=== PATIENT | female | born 1955 | race African-American/Black ===

== ENCOUNTER 2016-10-10 12:09 | Emergency (ER) | payer OTHER, MEDICAID ==
[~2016-10-10] VITALS: Ht 165.1 cm; Wt 64.0 kg
[~2016-10-10 12:09] MED LIST: METFORMIN; OMEPRAZOLE
[2016-10-10] MEDS ORDERED: KETOROLAC 60MG/2ML VIAL IM ONE (13:30)
[2016-10-10 16:35] VITALS: BP 138/60
== END 2016-10-10 17:05 | disposition home or self-care (01) ==
LOC: ER 12:31
DX: M25.562 Pain in left knee (principal); I10 Essential (primary) hypertension; M19.90 Unspecified osteoarthritis, unspecified site; W01.0XXA Fall on same level from slipping, tripping and stumbling without subsequent striking against object, initial encounter; Y93.89 Activity, other specified; Y92.89 Other specified places as the place of occurrence of the external cause; Y99.8 Other external cause status
CPT/HCPCS: 73562; 96372; 99284; J1885; L1830

== ENCOUNTER 2018-07-14 14:49 | Inpatient (IN) | payer MEDICARE, MEDICAID ==
[~2018-07-14] VITALS: Ht 167.6 cm; Wt 79.4 kg
[~2018-07-14 14:49] MED LIST changes: -METFORMIN; +METFORMIN PO; -OMEPRAZOLE; +OMEPRAZOLE PO
[2018-07-14 15:46] LABS: CHLORIDE 105 mEq/L (98-107); HEMATOCRIT. 25.8 % (36.0-48.0); HEMOGLOBIN. 7.7 g/dL (12.0-16.0); LYMPHOCYTES % 22.5 % (20.0-50.0); MEAN CORPUSCULAR HEMOGLOBIN 19.9 pg (28.0-32.0); MEAN CORPUSCULAR VOLUME 66.1 fL (81.0-99.0); MEAN PLATELET VOLUME 6.9 fl (7.4-10.4); MONOCYTES % 8.1 % (2.0-8.0); NEUTROPHILS % 67.4 % (40.0-76.0); PLATELET 434 x1000/uL (130-400); RED CELL DISTRIBUTION WIDTH 18.7 % (11.6-14.6)
[2018-07-14 15:50] LABS: ETHANOL BLOOD < 10 mg/dL
[2018-07-14 16:14] LABS: PLATELET ESTIMATE INCREASED
[2018-07-14] MEDS ORDERED: MORPHINE SULFATE 4 MG/ML CPJ (NOT FOR IM USE) IV STA (17:12)
[2018-07-14] MEDS ORDERED: ONDANSETRON HCL 4MG/2ML INJ IV STA (17:12)
[2018-07-14 18:25] LABS: *AMPHETAMINES SCREEN URINE NEGATIVE (NEGATIVE); *BARBITURATES SCREEN URINE NEGATIVE (NEGATIVE); *BENZODIAZEPINES SCREEN URINE NEGATIVE (NEGATIVE); *COCAINE SCREEN URINE PRESUMTIVE POSITIVE (NEGATIVE)
[2018-07-14] MEDS ORDERED: IOHEXOL-350 100 ML BOTTLE ONE (18:25)
[2018-07-14 18:26] LABS: CANNABINOID URINE SCREEN NEGATIVE (NEGATIVE); METHADONE URINE SCREEN NEGATIVE (NEGATIVE); OPIATES URINE SCREEN NEGATIVE (NEGATIVE); PHENCYCLIDINE URINE SCREEN NEGATIVE (NEGATIVE)
[2018-07-14 20:45] VITALS: BP 133/63
[2018-07-14 21:45] VITALS: BP 125/50
[2018-07-14 22:00] VITALS: BP 125/50
[2018-07-14] MEDS ORDERED: LISI-604 PO (22:14)
[2018-07-14] MEDS ORDERED: ASPI-1393 PO (22:15)
[2018-07-14] MEDS ORDERED: SIMV20TA6 PO (22:16)
[2018-07-14] MEDS ORDERED: HYDR-4001 PO (22:19)
[2018-07-14] MEDS ORDERED: S350 PO (22:20)
[2018-07-14] MEDS ORDERED: TRAZ-213 PO (22:25)
[2018-07-15] VITALS (8 sets, daily range): BP systolic 109–142; BP diastolic 54–79
[2018-07-15] MEDS ORDERED: MAGNESIUM/ALUMINUM HYDROXIDE/SIMETHICONE 30ML UDC PO PRN (00:30)
[2018-07-15] MEDS ORDERED: IPRATROPIUM/ALBUTEROL 0.5-3(2.5)MG/3ML NEB INH PRN (00:30)
[2018-07-15] MEDS ORDERED: DOCUSATE SODIUM 100MG CAPSULE PO PRN (00:30)
[2018-07-15] MEDS ORDERED: ACETAMINOPHEN 325MG TABLET PO PRN (00:30)
[2018-07-15] MEDS ORDERED: ONDANSETRON HCL 4MG/2ML INJ IV PRN (00:30)
[2018-07-15] MEDS ORDERED: CLONIDINE 0.1MG TABLET PO PRN (00:30)
[2018-07-15] MEDS: HYDROCODONE/ACETAMINOPHEN 5/325MG TABLET PO PRN ×3 (02:16→23:54)
[2018-07-15 07:16] LABS: CHLORIDE 106 mEq/L (98-107)
[2018-07-15 07:20] LABS: BASOPHILS % 0.6 % (0.0-2.0); EOSINOPHILS % 1.3 % (0.0-5.0); HEMATOCRIT. 27.3 % (36.0-48.0); HEMOGLOBIN. 8.4 g/dL (12.0-16.0); LYMPHOCYTES % 22.7 % (20.0-50.0); MEAN CORPUSCULAR HEMOGLOBIN 21.1 pg (28.0-32.0); MEAN CORPUSCULAR VOLUME 68.4 fL (81.0-99.0); MEAN PLATELET VOLUME 7.5 fl (7.4-10.4); MONOCYTES % 7.8 % (2.0-8.0); NEUTROPHILS % 67.6 % (40.0-76.0); PLATELET 387 x1000/uL (130-400); RED BLOOD CELL COUNT 3.99 mill/uL (4.2-5.4); RED CELL DISTRIBUTION WIDTH 20.5 % (11.6-14.6)
[2018-07-15 07:36] LABS: LDL CHOLESTEROL 83 mg/dL (5-100)
[2018-07-15 07:38] LABS: CREATINE KINASE 73 IU/L (26-192)
[2018-07-15 07:41] LABS: CREATINE KINASE MB FRACTION < 1.0 ng/mL (0.5-3.6); HDL CHOLESTEROL 51 mg/dL (40-59)
[2018-07-15] MEDS: ASPIRIN 81MG EC TABLET PO SCH (09:11)
[2018-07-15] MEDS: ENOXAPARIN 40MG/0.4ML SYR SUBCUT SCH (09:11)
[2018-07-15] MEDS ORDERED: DEXTROSE 50% WATER 50ML SYRINGE IV PRN (12:30)
[2018-07-15] MEDS: BLOOD SUGAR DIAGNOSTIC STRIP TEST SCH ×3 (12:37→20:34)
[2018-07-15] MEDS: INSULIN LISPRO 100 UNITS/ML SUBCUT SCH ×3 (12:54→20:34)
[2018-07-15 14:50] LABS: CLARITY URINE CLEAR (CLEAR); COLOR URINE YELLOW (YELLOW); KETONES URINE NEGATIVE (NEGATIVE); LEUKOCYTE ESTERASE URINE NEGATIVE (NEGATIVE); NITRITE URINE NEGATIVE (NEGATIVE); OCCULT BLOOD URINE NEGATIVE (NEGATIVE); PH URINE 6.5 (4.5-8.0); PROTEIN URINE NEGATIVE (NEGATIVE); SPECIFIC GRAVITY URINE 1.037 (1.005-1.030); UROBILINOGEN URINE 0.2 E.U./dL (0.2-1.0)
[2018-07-15 16:03] LABS: CREATINE KINASE 70 IU/L (26-192)
[2018-07-15 16:04] LABS: CREATINE KINASE MB FRACTION < 1.0 ng/mL (0.5-3.6)
[2018-07-16] VITALS: BP 136/60
[2018-07-16 04:00] VITALS: BP 130/76
[2018-07-16] MEDS: INSULIN LISPRO 100 UNITS/ML SUBCUT SCH ×2 (06:24→12:36)
[2018-07-16] MEDS: BLOOD SUGAR DIAGNOSTIC STRIP TEST SCH ×2 (06:25→12:36)
[2018-07-16 08:00] VITALS: BP 133/80
[2018-07-16] MEDS ORDERED: LISINOPRIL 20MG TABLET PO SCH (09:00)
[2018-07-16] MEDS: ENOXAPARIN 40MG/0.4ML SYR SUBCUT SCH (09:11)
[2018-07-16] MEDS: HYDROCODONE/ACETAMINOPHEN 5/325MG TABLET PO PRN (09:12)
[2018-07-16] MEDS: ASPIRIN 81MG EC TABLET PO SCH (09:13)
[2018-07-16 11:34] VITALS: BP 133/80
[2018-07-16 12:00] VITALS: BP 121/87
[2018-07-16 14:55] LABS: BASOPHILS % 0.7 % (0.0-2.0); EOSINOPHILS % 2.5 % (0.0-5.0); HEMATOCRIT. 30.7 % (36.0-48.0); HEMOGLOBIN. 9.4 g/dL (12.0-16.0); LYMPHOCYTES % 23.1 % (20.0-50.0); MEAN CORPUSCULAR HEMOGLOBIN 21.1 pg (28.0-32.0); MEAN CORPUSCULAR VOLUME 69.1 fL (81.0-99.0); MEAN PLATELET VOLUME 7.1 fl (7.4-10.4); MONOCYTES % 7.5 % (2.0-8.0); NEUTROPHILS % 66.2 % (40.0-76.0); PLATELET 392 x1000/uL (130-400); RED BLOOD CELL COUNT 4.44 mill/uL (4.2-5.4); RED CELL DISTRIBUTION WIDTH 20.6 % (11.6-14.6)
[2018-07-16 15:06] LABS: CHLORIDE 105 mEq/L (98-107)
== END 2018-07-16 17:00 | disposition home or self-care (01) | DRG 897 ==
LOC: ER 15:01 → 8WST 17:15 → ENRESERV 19:52
PROVIDERS: ADMIT Internal Medicine; ATTEND Internal Medicine
PROC: 30233N1 Transfusion of Nonautologous Red Blood Cells into Peripheral Vein, Percutaneous Approach (ICD-10-PCS; principal; 2018-07-14)
DX: F14.988 Cocaine use, unspecified with other cocaine-induced disorder (principal); E78.5 Hyperlipidemia, unspecified; I10 Essential (primary) hypertension; D50.9 Iron deficiency anemia, unspecified; F32.9 Major depressive disorder, single episode, unspecified; K21.9 Gastro-esophageal reflux disease without esophagitis; E11.9 Type 2 diabetes mellitus without complications; F10.10 Alcohol abuse, uncomplicated; F17.200 Nicotine dependence, unspecified, uncomplicated; M19.90 Unspecified osteoarthritis, unspecified site; F19.10 Other psychoactive substance abuse, uncomplicated; Z82.49 Family history of ischemic heart disease and other diseases of the circulatory system; Z79.899 Other long term (current) drug therapy
CPT/HCPCS: 36415; 71045; 71275; 80048; 80061; 80305; 80320; 82550; 82553; 82962; 83036; 83735; 83880; 84443; 84484; 86850; 86900; 86920; 93005; 93306; 93970; 96374; 99285; J1650; J1815; J2270; J2405; P9016; Q9967; G0480

== ENCOUNTER 2020-09-03 09:40 | Emergency (ER) | payer MEDICARE, MEDICAID ==
[~2020-09-03] VITALS: Ht 165.1 cm; Wt 90.0 kg
[~2020-09-03 09:40] MED LIST changes: +ASPI-1497 PO; +CARI350T28 PO; +HYDR-4001 PO; +LISI20TA31 PO; +SIMV-43 PO; +TRAZ-252 PO
[2020-09-03] MEDS ORDERED: TETANUS, DIPHTHERIA, PERTUSSIS VAC/PF 0.5ML (>7YR OLD) IM ONE (10:45)
[2020-09-03] MEDS ORDERED: ACETAMINOPHEN WITH CODEINE 300/30MG TABLET PO ONE (10:45)
[2020-09-03] MEDS ORDERED: BACITRACIN ZINC OINT UDPKT TOP ONE (10:45)
[2020-09-03 10:59] VITALS: BP 124/71
[2020-09-03] MEDS ORDERED: LIDOCAINE HCL/PF 1% 10 MG/ML 5ML VIAL INFIL ONE (11:00)
[2020-09-03] MEDS ORDERED: BO1 TP (11:39)
[2020-09-03] MEDS ORDERED: IBUP-2029 MT (11:39)
[2020-09-03] MEDS ORDERED: AMOX-424 MT (11:39)
[2020-09-03] MEDS ORDERED: DOXY100C42 MT (11:39)
== END 2020-09-03 12:34 | disposition home or self-care (01) ==
LOC: ER 09:40
DX: L03.012 Cellulitis of left finger (principal); I10 Essential (primary) hypertension; E11.9 Type 2 diabetes mellitus without complications; M54.30 Sciatica, unspecified side; Z79.84 Long term (current) use of oral hypoglycemic drugs; Z79.899 Other long term (current) drug therapy
CPT/HCPCS: 11730; 90471; 90715; 99284; J3490; 99283

== ENCOUNTER 2021-06-28 15:45 | Emergency (ER) | payer MEDICAID, MEDICARE ==
[~2021-06-28] VITALS: Ht 167.6 cm; Wt 82.0 kg
[~2021-06-28 15:45] MED LIST changes: +AMOX-424 MT; +BO1 TP; +DOXY-326 MT; +IBUP-2029 MT
[2021-06-28 15:53] VITALS: BP 139/79
[2021-06-28] MEDS ORDERED: CYCL10TA7 MT (17:56)
[2021-06-28] MEDS ORDERED: NAP5EC MT (17:56)
== END 2021-06-28 18:06 | disposition home or self-care (01) ==
LOC: ER 15:45
DX: M54.30 Sciatica, unspecified side (principal); F32.9 Major depressive disorder, single episode, unspecified; E11.9 Type 2 diabetes mellitus without complications; I10 Essential (primary) hypertension; Z79.899 Other long term (current) drug therapy
CPT/HCPCS: 99282; 99283